=== PATIENT | female | born 1955 | race Asian ===

== ENCOUNTER 2017-09-17 15:15 | Outpatient (CLI) | payer BC ==
[~2017-09-17 15:15] MED LIST: AMLO2.5T PO; ASPIR-8181 MG OR; BYSTOLIC10 MG PO; CRESTOR20 MG PO; HYDR25TA60 PO; LANTUS100 MG/ML SC; LISI20TA11 PO; METFORMIN ER1000 MG PO
== END 2017-09-17 19:19 | disposition home or self-care (01) ==
LOC: MAMMO 15:15
DX: Z12.31 Encounter for screening mammogram for malignant neoplasm of breast (principal)

== ENCOUNTER 2019-06-18 10:04 | Outpatient (CLI) | payer BC | END 2019-06-18 22:16 | disposition home or self-care (01) | LOC: MAMMO 10:04 | DX: Z12.31 Encounter for screening mammogram for malignant neoplasm of breast (principal) ==

== ENCOUNTER 2019-07-16 09:40 | Outpatient (CLI) | payer BC | END 2019-07-16 19:57 | disposition home or self-care (01) | LOC: RAD 09:40 | DX: Z13.820 Encounter for screening for osteoporosis (principal) ==

== ENCOUNTER 2020-10-19 11:28 | Outpatient (CLI) | payer BC | END 2020-10-19 22:28 | disposition home or self-care (01) | LOC: MAMMO 11:28 | PROVIDERS: ATTEND Internal Medicine | DX: Z12.31 Encounter for screening mammogram for malignant neoplasm of breast (principal) ==

== ENCOUNTER 2022-09-22 22:28 | Emergency (ER) | payer OTHER ==
[~2022-09-22] VITALS: Ht 165.1 cm; Wt 104.3 kg
[2022-09-22 22:46] VITALS: BP 177/85; TEMP 98.7
== END 2022-09-22 23:35 | disposition home or self-care (01) ==
LOC: ED 22:28
DX: S91.341A Puncture wound with foreign body, right foot, initial encounter (principal); E11.42 Type 2 diabetes mellitus with diabetic polyneuropathy; W45.8XXA Other foreign body or object entering through skin, initial encounter; W25.XXXA Contact with sharp glass, initial encounter; Y93.01 Activity, walking, marching and hiking; Y92.090 Kitchen in other non-institutional residence as the place of occurrence of the external cause
CPT/HCPCS: 99283

== ENCOUNTER 2022-10-05 14:29 | Outpatient (CLI) | payer OTHER ==
[2022-10-05 14:45] LABS: PLATELET COUNT 244 K/uL (152-353)
== END 2022-10-05 19:04 | disposition home or self-care (01) ==
LOC: LAB 14:29
PROVIDERS: ATTEND Internal Medicine
DX: E11.9 Type 2 diabetes mellitus without complications (principal)
CPT/HCPCS: 81002; 82043; 82570; 83036; 85027

== ENCOUNTER 2022-10-20 09:03 | Outpatient (CLI) | payer OTHER | END 2022-10-20 19:17 | disposition home or self-care (01) | LOC: MAMMO 09:03 | PROVIDERS: ATTEND Internal Medicine | DX: Z12.31 Encounter for screening mammogram for malignant neoplasm of breast (principal) ==